=== PATIENT | female | born 1980 | race American Indian/Alaskan Native ===

== ENCOUNTER 2020-09-05 17:57 | Emergency (ER) | payer OTHER ==
[2020-09-05 20:36] VITALS: BP 138/94
--- NOTE | 2020-09-05 20:40 | Emergency Department Report ---
ED General Adult HPI - General Chief complaint: Upper Respiratory Infection Stated complaint: COUGH/FEVER/CP Source: patient Mode of arrival: Ambulatory Limitations: No Limitations - History of Present Illness Initial comments: 40-year-old -[place] female presents to the emergency room for 3-day history of URI symptoms. Patient states that she had a fever chest pain with cough sore throat. She reports she was seen at the urgent care this morning and was placed on Augmentin albuterol and Tessalon Perles. Patient has gotten 1 dose of medication so far today. Patient reports she has lower abdominal pain after taking medication and saw blood in her urine. Patient states her last menstrual period is she is status post hysterectomy. She has a past medical history of gastric bypass x4 days. And she is 13 days out of having surgery to her left knee. Onset/Timin -: days(s) Location: chest, abdomen Severity scale (0 -10): 9 Quality: aching Consistency: intermittent Improves with: none Worsens with: other (Cough) Associated Symptoms: chest pain, cough, fever/chills, shortness of breath. denies: loss of appetite, nausea/vomiting, weakness Treatments Prior to Arrival: other (Tessalon Perles, Augmentin, albuterol and Tylenol) - Related Data Allergies Allergy/AdvReac Type Severity Reaction Status Date / Time gabapentin Allergy Itching Verified 09/05/20 20:05 ED Review of Systems ROS: Stated complaint: COUGH/FEVER/CP Other details as noted in HPI Comment: All other systems reviewed and negative ED Past Medical Hx - Past Medical History Previous Medical History?: No - Surgical History Past Surgical History?: Yes Additional Surgical History: knee left. gastric bypass - Social History Smoking Status: Never Smoker Substance Use Type: None ED Physical Exam - General Limitations: No Limitations General appearance: alert, in no apparent distress - Head Head exam: Present: atraumatic, normocephalic - Eye Eye exam: Present: normal appearance, EOMI - ENT ENT exam: Present: normal exam, mucous membranes moist - Neck Neck exam: Present: normal inspection - Respiratory Respiratory exam: Present: normal lung sounds bilaterally. Absent: respiratory distress, chest wall tenderness, accessory muscle use - Cardiovascular Cardiovascular Exam: Present: regular rate, normal rhythm. Absent: systolic murmur, diastolic murmur, rubs, gallop - GI/Abdominal GI/Abdominal exam: Present: soft. Absent: distended, tenderness - Extremities Exam Extremities exam: Present: normal inspection, full ROM - Back Exam Back exam: Present: normal inspection, full ROM - Neurological Exam Neurological exam: Present: alert, oriented X3, normal gait - Psychiatric Psychiatric exam: Present: normal affect, normal mood - Skin Skin exam: Present: warm, dry, intact, normal color. Absent: rash ED Course Vital Signs 09/05/20 20:02 Temperature 98.8 F Pulse Rate 93 H Respiratory 18 Rate Blood Pressure 138/94 O2 Sat by Pulse 100 Oximetry ED Medical Decision Making - Lab Data Abnormal Lab Results 09/05/20 Unknown Urine Color Yellow Urine Turbidity Clear Urine pH 5.0 Ur Specific [place] 1.029 Urine Protein <15 mg/dl Urine Glucose (UA) Neg Urine Ketones Tr Urine Blood Neg Urine Nitrite Neg Urine Bilirubin Neg Urine Urobilinogen < 2.0 Ur Leukocyte Esterase Neg Urine WBC (Auto) 3.0 Urine RBC (Auto) 5.0 U Epithel Cells (Auto) 2.0 Urine Bacteria (Auto) 1+ Urine Mucus Few - Medical Decision Making 40-year-old -Hung[place] female presents to the emergency room for 3-day history of URI symptoms. Patient states that she had a fever chest pain with cough sore throat. She reports she was seen at the urgent care this morning and was placed on Augmentin albuterol and Tessalon Perles. Patient has gotten 1 dose of medication so far today. Patient reports she has lower abdominal pain after taking medication and saw blood in her urine. Patient states her last menstrual period is she is status post hysterectomy. She has a past medical history of gastric bypass x4 days. And she is 13 days out of having surgery to her left knee. Urinalysis ordered Urinalysis is negative for any urinary tract infection. I did discuss with patient that she is currently on appropriate antibiotic for pneumonia as well as bronchitis. Discussed with patient to complete her Augmentin take her Tessalon Perles use inhaler she can take Tylenol or ibuprofen for pain. Follow-up with her primary care provider the next 3 to 5 days. Increase your fluid intake. Call to discharge patient and go over her labs. It appears that patient has eloped. Critical care attestation.: If time is entered above; I have spent that time in minutes in the direct care of this critically ill patient, excluding procedure time. ED Disposition Clinical Impression: Bronchitis Disposition: Z-[id number] ELOPED Is pt being admited?: No Does the pt Need Aspirin: No Condition: Stable Instructions: Chronic Bronchitis (ED), Upper Respiratory Infection, Adult, [id number] Additional Instructions: Continue with all medications at been's prescribed to you today by urgent care. Tylenol or ibuprofen as needed for chest wall tenderness from coughing. Increase your fluid intake advance your diet as tolerated. Tylenol or ibuprofen for fevers. Recommend Covid testing. Forms: Work/School Release Form(ED) Heart Score - HEART Score History: Slightly suspicious EKG: Normal Age: < 45 Risk factors: No known risk factors Troponin: < normal limit (Not checked) HEART Score: 0 - EKG Read Time Time EKG Completed: 22:29 (EKG not performed patient left eloped) EKG Read Time: 22:29
[2020-09-05 21:13] LABS: Bacteria,Urine 1+ /HPF (Negative); Bilirubin,Urine NEG (Negative); Blood,Urine NEG (Negative); Color,Urine Yellow (Yellow); Mucus,Urine FEW /HPF; Protein,Urine <15 mg/dL mg/dL (Negative); Urobilinogen,Urine < 2.0 mg/dL (<2.0)
== END 2020-09-05 22:30 | disposition left against medical advice (07) ==
LOC: ED 17:57
DX: J40 Bronchitis, not specified as acute or chronic (principal); Z79.899 Other long term (current) drug therapy; Z88.8 Allergy status to other drugs, medicaments and biological substances; Z98.890 Other specified postprocedural states
CPT/HCPCS: 81001